=== PATIENT | female | born 1940 | race Caucasian/White ===

== ENCOUNTER 2018-09-15 16:00 | Outpatient (REF) | payer MEDICARE, BC, SELFPAY ==
[2018-09-15 22:10] LABS: HCT 37.8 % (36.0-46.0); HGB 12.8 g/dL (12.0-15.5); Mean Corp. HGB Concentration 33.9 g/dL (32.0-36.0); Mean Corpuscular Hemoglobin 30.2 pg (27.0-33.0); Mean Corpuscular Volume 89.2 fL (80-95); Mean Platelet Volume 9.6 fL (8.0-11.0); Platelet Count 264 x1000/uL (130-400); RBC 4.24 m/cumm (4.00-5.20); RBC Distribution Width 13.1 % (11.7-14.6); White Blood Cell Count 6.55 k/cumm (4.4-10.8)
[2018-09-15 22:26] LABS: ALT 29 U/L (12-78); Anion Gap 8.9 mmol/L (3-11); BUN 12 mg/dL (7-18); CO2 28.1 mmol/L (21.0-32.0); CREATININE 0.89 mg/dL (0.55-1.02); Calcium 8.9 mg/dL (8.5-10.1); Chloride 105 mmol/L (98-107); Cholesterol 196 mg/dL (50-200); Glucose 109 mg/dL (70-100); HDL Cholesterol 104 mg/dL (40-60); LDL CHOLESTEROL 75 mg/dL (<100); Potassium 4.3 mmol/L (3.5-5.1); Sodium 142 mmol/L (136-145); Triglyceride 131 mg/dL (30-150)
== END 2018-09-15 16:20 ==
LOC: NCHCN 16:00
PROVIDERS: PCP Family Medicine; Visit Provider Family Medicine
DX: R10.9 Unspecified abdominal pain (principal); R00.2 Palpitations; E78.89 Other lipoprotein metabolism disorders
CPT/HCPCS: 80048; 80061; 83721; 85027; 84460

== ENCOUNTER 2019-09-28 17:49 | Outpatient (REF) | payer MEDICARE, BC, SELFPAY ==
[2019-09-28 21:41] LABS: HCT 36.1 % (36.0-46.0); HGB 12.1 g/dL (12.0-15.5); Mean Corp. HGB Concentration 33.5 g/dL (32.0-36.0); Mean Corpuscular Hemoglobin 30.4 pg (27.0-33.0); Mean Corpuscular Volume 90.7 fL (80-95); Mean Platelet Volume 9.7 fL (8.0-11.0); Platelet Count 277 x1000/uL (130-400); RBC 3.98 m/cumm (4.00-5.20); RBC Distribution Width 12.4 % (11.7-14.6); White Blood Cell Count 8.62 k/cumm (4.4-10.8)
[2019-09-28 22:01] LABS: ALT 21 U/L (14-59); AST 27 U/L (15-37); Albumin 3.5 g/dL (3.4-5.0); Alkaline Phosphatase 82 U/L (46-116); Anion Gap 9.4 mmol/L (3-11); BUN 12 mg/dL (7-18); Bilirubin, Total 0.5 mg/dL (0.2-1.0); CO2 26.6 mmol/L (21.0-32.0); CREATININE 0.76 mg/dL (0.55-1.02); Calcium 8.6 mg/dL (8.5-10.1); Chloride 103 mmol/L (98-107); Glucose 104 mg/dL (74-106); Lipase 387 U/L (73-393); Potassium 4.2 mmol/L (3.5-5.1); Sodium 139 mmol/L (136-145); Total Protein 6.6 g/dL (6.4-8.2)
== END 2019-09-28 18:09 ==
LOC: NCHCN 17:49
PROVIDERS: PCP Family Medicine; Visit Provider Nurse Practitioner Family
DX: R10.9 Unspecified abdominal pain (principal)
CPT/HCPCS: 80053; 83690; 85027

== ENCOUNTER 2021-01-11 17:31 | Outpatient (REF) | payer MEDICARE, BC, SELFPAY ==
[2021-01-11 13:41] LABS: HCT 39.5 % (36.0-46.0); HGB 13.6 g/dL (11.2-15.7); MCH 30.8 pg (27.0-33.0); MCHC 34.4 % (32.0-36.0); MCV 89.6 fL (80-95); MPV 9.7 fL (8.0-11.0); Platelet Count 296 10^3/uL (130-400); RBC 4.41 10^6/uL (3.93-5.22); RDW 12.1 % (11.7-14.6); RDW-SD 39.8 fL; WBC 4.66 10^3/uL (4.4-10.8)
[2021-01-11 15:08] LABS: BUN 14 mg/dL (7-18); CREATININE 0.8 mg/dL (0.55-1.02); Chloride 106 mmol/L (98-107); Glucose 102 mg/dL (74-106); Potassium 4.5 mmol/L (3.5-5.1); Sodium 142 mmol/L (136-145)
== END 2021-01-11 17:32 | disposition home or self-care (01) ==
LOC: NCHCN 17:31
PROVIDERS: PCP Family Medicine; Visit Provider Family Medicine
DX: E87.6 Hypokalemia (principal); R53.83 Other fatigue
CPT/HCPCS: 80048; 85027

== ENCOUNTER 2021-10-11 15:03 | Outpatient (REF) | payer MEDICARE, BC, SELFPAY ==
[2021-10-11 21:59] LABS: Anion Gap 8.1 mmol/L (3-11); BUN 11 mg/dL (7-18); CO2 27.9 mmol/L (21.0-32.0); CREATININE 0.8 mg/dL (0.55-1.02); Calcium 8.8 mg/dL (8.5-10.1); Calculated LDL 91 mg/dL (<100); Chloride 105 mmol/L (98-107); Cholesterol 205 mg/dL (<200); Glucose 91 mg/dL (74-106); HDL Cholesterol 89 mg/dL (40-60); Sodium 141 mmol/L (136-145); Triglyceride 128 mg/dL (<150)
[2021-10-14 05:28] LABS: Vitamin D 25 Total 38.4 ng/mL (30-100)
== END 2021-10-11 15:04 | disposition home or self-care (01) ==
LOC: NCHCN 15:03
PROVIDERS: PCP Family Medicine; Visit Provider Family Medicine
DX: R29.898 Other symptoms and signs involving the musculoskeletal system (principal); Z13.21 Encounter for screening for nutritional disorder; Z13.220 Encounter for screening for lipoid disorders; Z86.39 Personal history of other endocrine, nutritional and metabolic disease; R53.83 Other fatigue; I10 Essential (primary) hypertension
CPT/HCPCS: 80048; 80061; 82306

== ENCOUNTER 2022-12-22 16:56 | Outpatient (REF) | payer MEDICARE, BC, SELFPAY ==
--- OUTSIDE RECORDS SUMMARY | 2022-12-22 17:14 | XMS_ITS | CCD ---
Author Name Unknown Address [address] [place] [address] [phone] Organization Unknown Address [address] [place] [address] [phone] Care Team Providers Care Christmas Tree Farm Manager Name Role Phone YUNIER MITCHELL Attending Physician [phone] Vital Signs Unknown or Not Available. Allergies Allergy Code Allergy Type Reaction Status PENICILLINS (CLASS) 78216 Drug allergy malaise, myalg ia Active AMOXICILLIN 723 Drug allergy fever, malaise Active Procedures Unknown or Not Available. History of Immunizations Unknown or Not Available. Problems Problem Code Start Date Resolved Date Status COVID-19 131820729 Active Stroke 566659702 12/31/2021 Resolved Results Unknown or Not Available. Active Medications Medication Code Dose Units Frequency Route Modificatio n Start Date/Time metroNIDAZOLE 500MG Oral Tablet 213167 1 TABLET EVERY 8 HOURS ORAL 12/31/2021 13:15 Prescription Detail TAKE 1 TABLET ORAL EVERY 8 HOURS Cipro 500MG Oral Tablet 322559 1 TABLET EVERY 12 HOURS ORAL 12/31/2021 13:14 Prescription Detail TAKE 1 TABLET ORAL EVERY 12 HOURS Aspirin 325MG Oral Tablet, Enteric Coated 638740 1 TABLET DAILY ORAL 09/17 12:23 Prescription Detail TAKE 1 TABLET ORAL DAILY Atorvastatin Calcium 10MG Oral Tablet 520113 10 MILLIGRAMS BEDTIME BY MOUTH 09/17/2015 12:22 Prescription Detail TAKE 10 MILLIGRAMS BY MOUTH BEDTIME Mapap 325MG Oral Tablet 127886 650 MILLIGRAMS NEEDED EVERY 4 HOURS BY MOUTH 09/17/2015 12:22 Prescription Detail TAKE 650 MILLIGRAMS BY MOUTH NEEDED E VERY 4 HOURS Medications Administered During Visit Unknown or Not Available. Encounters Encounter Diagnosis Diagnosis Code Start Date Diverticulitis of large inte soo without perforation or abscess without bleeding K5732 12/29/2021 Social History Unknown or Not Available. Patient Decision Aids Unknown or Not Available. Discharge Instructions You were admitted to [facility] on 12/29/2021 10:05 with a principal diagnosis of Diverticulitis of large intestine without perforation or abscess without bleeding You were discharged from [facility] on 12/29/2021 15:08 Should you have any questions prior to discharge, please contact a member of your healthcare team. If you have left the hospital and have any questions, please contact your primary care physician. Chief Complaint and Reason For Visit Unknown or Not Available. Function Status Unknown or Not Available. Plan of Care Unknown or Not Available. Referral/Transition of Care Unknown or Not Available.
--- OUTSIDE RECORDS SUMMARY | 2022-12-22 17:14 | XMS_ITS | CCD ---
Author Name Unknown Address [address] [place] [address] [phone] Organization Unknown Address [address] [place] [address] [phone] Care Team Providers Care Barman Name Role Phone KIKI WEBB Attending Physician [phone] KIKI WEBB Rounding (Secondary) Physici an [phone] Vital Signs Unknown or Not Available. Allergies Allergy Code Allergy Type Reaction Status PENICILLINS (CLASS) 40741 Drug allergy malaise, myalg ia Active AMOXICILLIN 723 Drug allergy fever, malaise Active Procedures Unknown or Not Available. History of Immunizations Unknown or Not Available. Problems Problem Code Start Date Resolved Date Status COVID-19 580565922 Active Results Unknown or Not Available. Active Medications Medication Code Dose Units Frequency Route Modificatio n Start Date/Time metroNIDAZOLE 500MG Oral Tablet 374623 1 TABLET EVERY 8 HOURS ORAL 12/31/2021 13:15 Prescription Detail TAKE 1 TABLET ORAL EVERY 8 HOURS Cipro 500MG Oral Tablet 919513 1 TABLET EVERY 12 HOURS ORAL 12/31/2021 13:14 Prescription Detail TAKE 1 TABLET ORAL EVERY 12 HOURS Aspirin 325MG Oral Tablet, Enteric Coated 991675 1 TABLET DAILY ORAL 09/17 12:23 Prescription Detail TAKE 1 TABLET ORAL DAILY Atorvastatin Calcium 10MG Oral Tablet 513968 10 MILLIGRAMS BEDTIME BY MOUTH 09/17/2015 12:22 Prescription Detail TAKE 10 MILLIGRAMS BY MOUTH BEDTIME Mapap 325MG Oral Tablet 857176 650 MILLIGRAMS NEEDED EVERY 4 HOURS BY MOUTH 09/17/2015 12:22 Prescription Detail TAKE 650 MILLIGRAMS BY MOUTH NEEDED E VERY 4 HOURS Medications Administered During Visit Unknown or Not Available. Encounters Encounter Diagnosis Diagnosis Code Start Date Diverticulitis of intestine, part unspecified, without perforation or abscess without bleeding K5792 01/21/2022 Social History Smoking Status Code Start Date End Date Never smoker [id number] Patient Decision Aids Unknown or Not Available. Discharge Instructions You were admitted to [facility] on 01/21/2022 10:30 with a principal diagnosis of Diverticulitis of intestine, part unspecified, without perforation or abscess without bleeding You were discharged from [facility] on 01/21/2022 00:00 Should you have any questions prior to [...]
--- OUTSIDE RECORDS SUMMARY | 2022-12-22 17:14 | XMS_ITS | CCD ---
Author Name Unknown Address [address] [place] [address] [id number] Organization Unknown Address [address] [place] [address] [phone] Care Team Providers Care Aluminum Sheet Cutter Name Role Phone KIKI WEBB Attending Physician [phone] Vital Signs Unknown or Not Available. Allergies Allergy Code Allergy Type Reaction Status PENICILLINS (CLASS) 17252 Drug allergy malaise, myalg ia Active AMOXICILLIN 723 Drug allergy fever, malaise Active Procedures Unknown or Not Available. History of Immunizations Unknown or Not Available. Problems Problem Code Start Date Resolved Date Status COVID-19 995728676 Active Stroke 158259255 12/31/2021 Resolved Results Unknown or Not Available. Active Medications Medication Code Dose Units Frequency Route Modificatio n Start Date/Time metroNIDAZOLE 500MG Oral Tablet 502437 1 TABLET EVERY 8 HOURS ORAL 12/31/2021 13:15 Prescription Detail TAKE 1 TABLET ORAL EVERY 8 HOURS Cipro 500MG Oral Tablet 886348 1 TABLET EVERY 12 HOURS ORAL 12/31/2021 13:14 Prescription Detail TAKE 1 TABLET ORAL EVERY 12 HOURS Aspirin 325MG Oral Tablet, Enteric Coated 358013 1 TABLET DAILY ORAL 09/17 12:23 Prescription Detail TAKE 1 TABLET ORAL DAILY Atorvastatin Calcium 10MG Oral Tablet 948567 10 MILLIGRAMS BEDTIME BY MOUTH 09/17/2015 12:22 Prescription Detail TAKE 10 MILLIGRAMS BY MOUTH BEDTIME Mapap 325MG Oral Tablet 888826 650 MILLIGRAMS NEEDED EVERY 4 HOURS BY MOUTH 09/17/2015 12:22 Prescription Detail TAKE 650 MILLIGRAMS BY MOUTH NEEDED E VERY 4 HOURS Medications Administered During Visit Unknown or Not Available. Encounters Encounter Diagnosis Diagnosis Code Start Date Diverticulitis of large inte soo without perforation or abscess without bleeding K5732 12/29/2021 Social History Smoking Status Code Start Date End Date Never smoker [id number] Patient Decision Aids Unknown or Not Available. Discharge Instructions You were admitted to [facility] on 12/29/2021 01:02 with a principal diagnosis of Diverticulitis of large intestine without perforation or abscess without bleeding You were discharged from [facility] on 12/31/2021 01:07 Should you have any questions prior to [...]
--- OUTSIDE RECORDS SUMMARY | 2022-12-22 17:14 | XMS_ITS | CCD ---
Author Name Unknown Address [address] [place] [address] [id number] Organization Unknown Address [address] [place] [address] [phone] Care Team Providers Care Pediatric Speech Therapist Name Role Phone BARB RUDOLPH Attending Physician [phone] NORBERTO GOTTI (Secondary) Physician [phone] Vital Signs Unknown or Not Available. Allergies Allergy Code Allergy Type Reaction Status PENICILLINS (CLASS) 04673 Drug allergy malaise, myalg ia Active AMOXICILLIN 723 Drug allergy fever, malaise Active Procedures Unknown or Not Available. History of Immunizations Unknown or Not Available. Problems Problem Code Start Date Resolved Date Status COVID-19 974629246 Active Results CATHY COVID RHEONIX* - Lili ect Date/Time: 04/14/2022 10:14 Test Name Code Test Result Test Units Test Ref Rang e Tier- 45925-7 PRE-OP N/A SARS COV2 RNA: 15020-2 NEGATIVE N/A REFERENCE RANGE: NEGAT Active Medications Medication Code Dose Units Frequency Route Modificatio n Start Date/Time metroNIDAZOLE 500MG Oral Tablet 522854 1 TABLET EVERY 8 HOURS ORAL 12/31/2021 13:15 Prescription Detail TAKE 1 TABLET ORAL EVERY 8 HOURS Cipro 500MG Oral Tablet 786004 1 TABLET EVERY 12 HOURS ORAL 12/31/2021 13:14 Prescription Detail TAKE 1 TABLET ORAL EVERY 12 HOURS Aspirin 325MG Oral Tablet, Enteric Coated 713438 1 TABLET DAILY ORAL 09/17 12:23 Prescription Detail TAKE 1 TABLET ORAL DAILY Atorvastatin Calcium 10MG Oral Tablet 188292 10 MILLIGRAMS BEDTIME BY MOUTH 09/17/2015 12:22 Prescription Detail TAKE 10 MILLIGRAMS BY MOUTH BEDTIME Mapap 325MG Oral Tablet 940204 650 MILLIGRAMS NEEDED EVERY 4 HOURS BY MOUTH 09/17/2015 12:22 Prescription Detail TAKE 650 MILLIGRAMS BY MOUTH NEEDED E VERY 4 HOURS Medications Administered During Visit Unknown or Not Available. Encounters Encounter Diagnosis Diagnosis Code Start Date Pre-surgery testing [id number] 04/14/2022 Social History Smoking Status Code Start Date End Date Never smoker 826537899 Patient Decision Aids Unknown or Not Available. Discharge Instructions You were admitted to [facility] on 04/14/2022 18:37 with a principal diagnosis of Encounter for preprocedural laboratory examination You had the following tests done:CATHYYADIRA LIVINGSTON RHEONIX* You were discharged from [facility] on 04/14/2022 18:37 Should you have any questions prior to [...]
--- OUTSIDE RECORDS SUMMARY | 2022-12-22 17:14 | XMS_ITS | CCD ---
Author Name Unknown Address [address] [place] [address] [id number] Organization Unknown Address [address] [place] [address] [phone] Care Team Providers Care Manager Nuclear Name Role Phone KIKI WEBB Attending Physician [phone] YUNIER MITCHELL Er Physician [phone] YUNIER MITCHELL Rounding (Secondary) Physician [phone] THOMAS Jacobsen Registered Nurse [phone] Unavailable Registered Nurse [phone] Vital Signs Vital Sign Value Unit Date/Time Recent/Initial ? BMI (Body Mass Index) 21.03 kg/m^2 12/29/2021 10: 26 Initial VS Weight Measured 115 lbs 12/29/2021 10:26 Ini tial VS Height 62 in 12/29/2021 10:26 Initial VS BSA (Body Surface Area) 1.51 m^2 12/29/2021 1 0:26 Initial VS BP Systolic 162 mmHg 12/29/2021 10:26 Initial VS BP Diastolic 68 mmHg 12/29/2021 10:26 Initia l VS Respiratory Rate 18 bpm 12/29/2021 10:26 In itial VS Heart Rate 70 bpm 12/29/2021 10:26 Initial VS O2 % BldC Oximetry 98 % 12/29/2021 10:26 Initial VS Body Temperature 37.2 degrees 12/29/2021 10:26 In itial VS BP Systolic 141 mmHg 12/31/2021 08:44 Most Re cent VS BP Diastolic 81 mmHg 12/31/2021 08:44 Most R ecent VS Respiratory Rate 18 bpm 12/31/2021 08:[address] Recent VS Heart Rate 77 bpm 12/31/2021 08:44 Most Rec ent VS O2 % BldC Oximetry 99 % 12/31/2021 08:44 Most Recent VS Body Temperature 36.6 degrees 12/31/2021 08:[address] Recent VS BMI (Body Mass Index) 20.85 kg/m^2 12/31/2021 09: 48 Most Recent VS Weight Measured 114 lbs 12/31/2021 09:48 Mos t Recent VS Height 62 in 12/31/2021 09:48 Most Rec ent VS BSA (Body Surface Area) 1.5 m^2 12/31/2021 0 9:48 Most Recent VS Allergies Allergy Code Allergy Type Reaction Status PENICILLINS (CLASS) 71165 Drug allergy malaise, myalg ia Active AMOXICILLIN 723 Drug allergy fever, malaise Active Procedures Unknown or Not Available. History of Immunizations Unknown or Not Available. Problems Problem Code Start Date Resolved Date Status COVID-19 824057144 Active Stroke 028142928 12/31/2021 Resolved Results BASIC METABOLIC PANEL (BMP) - Collect Date/Time: 12/31/2021 07:30 Test Name Code Test Result Test Units Test Ref Rang e GLUCOSE 2345-7 107 mg/dL L=70 H=116 BUN 3094-0 7 mg/dL L=6 H=25 CREATININE 2160-0 0.78 mg/dL L=0.51 H=0.95 SODIUM SERUM 2951-2 139 mmol/L L=136 H=145 POTASSIUM SERUM 2823-3 3.9 mmol/L L=3.4 H=5 .2 CHLORIDE SERUM 2075-0 105 mmol/L L=96 H=110 CARBON DIOXIDE (CO2) 2028-9 25 mmol/L L=22 H=34 ANION GAP 82475-9 9.1 mmol/L CALCIUM SERUM 22056-7 8.8 mg/dL L=8.2 H=10. 2 AGE 81 years eGFR (non-Afr.Amer.) 58287-1 71 mL/min eGFR (Afr-Salvadorean) 09767-8 85 mL/min BASIC METABOLIC PANEL (BMP) - Collect Date/Time: 12/30/2021 06:20 Test Name Code Test Result Test Units Test Ref Rang e GLUCOSE 2345-7 111 mg/dL L=70 H=116 BUN 3094-0 9 mg/dL L=6 H=25 CREATININE 2160-0 0.82 mg/dL L=0.51 H=0.95 SODIUM SERUM 2951-2 136 mmol/L L=136 H=145 POTASSIUM SERUM 2823-3 3.6 mmol/L L=3.4 H=5 .2 CHLORIDE SERUM 2075-0 102 mmol/L L=96 H=110 CARBON DIOXIDE (CO2) 2028-9 26 mmol/L L=22 H=34 ANION GAP 04420-4 8.5 mmol/L CALCIUM SERUM 14454-9 8.6 mg/dL L=8.2 H=10. 2 AGE 81 years eGFR (non-Afr.Amer.) 10960-3 67 mL/min eGFR (Afr-Salvadorean) 90354-5 81 mL/min COMPREHENSIVE METABOLIC PANE L (CMP) - Collect Date/Time: 12/29/2021 11:45 Test Name Code Test Result Test Units Test Ref Rang e GLUCOSE 2345-7 98 mg/dL L=70 H=116 BUN 3094-0 10 mg/dL L=6 H=25 CREATININE 2160-0 0.81 mg/dL L=0.51 H=0.95 SODIUM SERUM 2951-2 136 mmol/L L=136 H=145 POTASSIUM SERUM 2823-3 4.0 mmol/L L=3.4 H=5 .2 CHLORIDE SERUM 2075-0 101 mmol/L L=96 H=110 CARBON DIOXIDE (CO2) 2028-9 25 mmol/L L=22 H=34 ANION GAP 65157-4 10.3 mmol/L CALCIUM SERUM 60898-2 9.0 mg/dL L=8.2 H=10. 2 BILIRUBIN TOTAL 1975-2 0.5 mg/dL L=0.0 H=1 .3 ALK. PHOS. 6768-6 88 U/L L=46 H=116 SGOT (AST) 1920-8 23 U/L L=15 H=37 SGPT (ALT) 1742-6 20 U/L L=12 H=78 TOTAL PROTEIN 2885-2 7.5 gm/dL L=6.0 H=8.0 ALBUMIN 1751-7 3.2 gm/dL L=3.4 H=5.0 AGE 81 years eGFR (non-Afr.Amer.) 85216-8 68 mL/min eGFR (Afr-Salvadorean) 20562-5 82 mL/min LIPASE* - Collect Date/Time: 12/29/2021 11:45 Test Name Code Test Result Test Units Test Ref Rang e LIPASE 185 U/L L=73 H=393 CBC W/ DIFFERENTIAL* - Colle ct Date/Time: 12/31/2021 07:30 Test Name Code Test Result Test Units Test Ref Rang e WBC 6690-2 7.14 th/cmm L=5.00 H=10.00 NEUT % 63.7 % L=40.0 H=80.0 LYMPH % 22.4 % L=10.0 H=50.0 MONO % 04433-1 11.1 % L=2.0 H=12.0 EOS % 1.8 % L=0.0 H=8.0 BASO % 0.7 % L=0.0 H=3.0 IG % 2514-8 0.3 % L=0.0 H=1.1 NRBC % 53263-4 0.0 % L=0.0 H=0.0 NEUT abs count 751-8 4.6 th/cmm L=1.6 H=8. 4 LYMPH abs count 731-0 1.6 th/cmm L=1.5 H=4 .0 MONO abs count 742-7 0.8 th/cmm L=0.2 H=1. 0 EOS abs count 711-2 0.1 th/cmm L=0.0 H=0.5 BASO abs count 704-7 0.1 th/cmm L=0.0 H=0. 2 IG abs count 48227-7 0.0 th/cmm L=0.0 H=0.1 NRBC abs count 20352-6 0.0 mil/cmm L=0.0 H=0. 0 RBC 789-8 4.15 mil/cmm L=3.90 H=5.40 HEMOGLOBIN 718-7 12.5 gm/dL L=12.0 H=16.0 HEMATOCRIT 4544-3 36 % L=37 H=47 MCV 787-2 87 fL L=82 H=92 MCH 785-6 30.1 pg L=27.0 H=31.0 MCHC 786-4 34.6 % L=32.0 H=36.0 RDW-SD 788-0 38.1 fL L=39.0 H=49.0 PLATELET COUNT 777-3 344 th/cmm L=150 H=45 0 CBC W/ DIFFERENTIAL* - [facility] ct Date/Time: 12/30/2021 06:20 Test Name Code Test Result Test Units Test Ref Rang e WBC 6690-2 6.98 th/cmm L=5.00 H=10.00 NEUT % 71.1 % L=40.0 H=80.0 LYMPH % 16.9 % L=10.0 H=50.0 MONO % 63152-0 9.9 % L=2.0 H=12.0 EOS % 1.3 % L=0.0 H=8.0 BASO % 0.4 % L=0.0 H=3.0 IG % 2514-8 0.4 % L=0.0 H=1.1 NRBC % 58037-7 0.0 % L=0.0 H=0.0 NEUT abs count 751-8 5.0 th/cmm L=1.6 H=8. 4 LYMPH abs count 731-0 1.2 th/cmm L=1.5 H=4 .0 MONO abs count 742-7 0.7 th/cmm L=0.2 H=1. 0 EOS abs count 711-2 0.1 th/cmm L=0.0 H=0.5 BASO abs count 704-7 0.0 th/cmm L=0.0 H=0. 2 IG abs count 01421-7 0.0 th/cmm L=0.0 H=0.1 NRBC abs count 14552-5 0.0 mil/cmm L=0.0 H=0. 0 RBC 789-8 4.02 mil/cmm L=3.90 H=5.40 HEMOGLOBIN 718-7 12.1 gm/dL L=12.0 H=16.0 HEMATOCRIT 4544-3 35 % L=37 H=47 MCV 787-2 87 fL L=82 H=92 MCH 785-6 30.1 pg L=27.0 H=31.0 MCHC 786-4 34.5 % L=32.0 H=36.0 RDW-SD 788-0 38.5 fL L=39.0 H=49.0 PLATELET COUNT 777-3 297 th/cmm L=150 H=45 0 CBC W/ DIFFERENTIAL* - [facility] ct Date/Time: 12/29/2021 11:45 Test Name Code Test Result Test Units Test Ref Rang e WBC 6690-2 10.08 th/cmm L=5.00 H=10.00 NEUT % 72.3 % L=40.0 H=80.0 LYMPH % 15.5 % L=10.0 H=50.0 MONO % 76982-6 10.4 % L=2.0 H=12.0 EOS % 0.9 % L=0.0 H=8.0 BASO % 0.5 % L=0.0 H=3.0 IG % 2514-8 0.4 % L=0.0 H=1.1 NRBC % 96414-6 0.0 % L=0.0 H=0.0 NEUT abs count 751-8 7.3 th/cmm L=1.6 H=8. 4 LYMPH abs count 731-0 1.6 th/cmm L=1.5 H=4 .0 MONO abs count 742-7 1.1 th/cmm L=0.2 H=1. 0 EOS abs count 711-2 0.1 th/cmm L=0.0 H=0.5 BASO abs count 704-7 0.1 th/cmm L=0.0 H=0. 2 IG abs count 16283-9 0.0 th/cmm L=0.0 H=0.1 NRBC abs count 03744-0 0.0 mil/cmm L=0.0 H=0. 0 RBC 789-8 4.28 mil/cmm L=3.90 H=5.40 HEMOGLOBIN 718-7 13.0 gm/dL L=12.0 H=16.0 HEMATOCRIT 4544-3 38 % L=37 H=47 MCV 787-2 88 fL L=82 H=92 MCH 785-6 30.4 pg L=27.0 H=31.0 MCHC 786-4 34.7 % L=32.0 H=36.0 RDW-SD 788-0 38.5 fL L=39.0 H=49.0 PLATELET COUNT 777-3 309 th/cmm L=150 H=45 0 CATHY HARRINGTONONIX* - Lili ect Date/Time: 12/30/2021 05:00 Test Name Code Test Result Test Units Test Ref Jennifer kan Tier- 19700-8 INPATIENT/ED N/A SARS COV2 RNA: 48803-9 POSITIVE N/A REFERENCE RANGE: NEGAT URINALYSIS WITH REFLEX CULT IF POSITIVE* - Collect Date/Time: 12/29/2021 13:05 Test Name Code Test Result Test Units Test Ref Rang e COLLECTION MODE: 21175-0 CLEAN CATCH N/A Color 5778-6 STRAW N/A yellow Appearance 5767-9 CLEAR N/A clear Glucose urine 97523-2 NEGATIVE N/A negative mg /dl Bilirubin 5770-3 NEGATIVE N/A negative Ketones 2514-8 NEGATIVE N/A negative mg/dl Spec gravity 5811-5 <=1.005 N/A 1.003 - 1.03 0 pH urine 2756-5 7.0 N/A 5.0 - 7.0 Protein 94905-8 NEGATIVE N/A negative mg/dl Urobilinogen 15903-9 0.2 N/A <or= 1 EU/dl Nitrite. 5802-4 NEGATIVE N/A negative Blood 5794-3 NEGATIVE N/A negative Leukocytes. NEGATIVE N/A negative MICROSCOPIC NOT INDICAT N/A Active Medications Medications Administered During Visit Medication Dose Units Frequency Route Date/Time of Last Dose POTASSIUM CHL IN D5%-1/2NS: 20mEq/1000ML 1 EA CONT 12/30/2021 22:0 0 PANTOPRAZOLE INJ SDV: 40MG 40 MG DAILY IVP 12/31/2021 07:56 CefTRIAXone IVPB: 1GM/50ML 1 GM Q24H 12/31/2021 13:40 MetroNIDAZOLE IVPB PREMIX: 500MG/100ML 500 MG Q8H 12/30/2021 04:1 0 MetroNIDAZOLE IVPB PREMIX: 500MG/100ML 500 MG Q8H 12/31/2021 11:3 0 ATORVASTATIN TABLET: 10MG 10 MG BEDTIME PO 12/30/2021 22:00 ASPIRIN TABLET E.C.: 81MG 81 MG DAILY WITH AMLIK D PO 12/31/2021 07:56 Encounters Encounter Diagnosis Diagnosis Code Start Date Diverticulitis of large inte soo without perforation or abscess without bleeding K5732 12/29/2021 Social History Smoking Status Code Start Date End Date Never smoker [id number] Patient Decision Aids Patient Decision Aid Diverticulitis Discharge Instructions You were admitted to [facility] on 12/29/2021 15:10 with a principal diagnosis of Diverticulitis of large intestine without perforation or abscess without bleeding You had the following tests done:BASIC METABOLIC PANEL (BMP)CBC W/ DIFFERENTIAL*BASIC METABOLIC PANEL (BMP)CBC W/ DIFFERENTIAL*CATHY COVID RHEONIX*URINALYSIS WITH REFLEX CULT IF POSITIVE*CBC W/ DIFFERENTIAL*COMPREHENSIVE METABOLIC PANEL (CMP)LIPASE* You were discharged from [facility] on 12/31/2021 16:10 Should you have any questions prior to discharge, please contact a member of your healthcare team. If you have left the hospital and have any questions, please contact your primary care physician. Chief Complaint and Reason For Visit Chief Complaint Date of Onset DIVERTICULITIS 12/29/2021 Function Status Unknown or Not Available. Plan of Care Unknown or Not Available. Referral/Transition of Care Unknown or Not Available.
--- OUTSIDE RECORDS SUMMARY | 2022-12-22 17:14 | XMS_ITS | CCD ---
Author Name Unknown Address [address] [place] [address] [id number] Organization Unknown Address [address] [place] [address] [phone] Care Team Providers Care Technician Support Association Name Role Phone GEOFF ROBERSON Attending Physician [phone] GEOFF ROBERSON Rounding (Secondary) Physician [phone] Vital Signs Unknown or Not Available. Allergies Allergy Code Allergy Type Reaction Status PENICILLINS (CLASS) 98182 Drug allergy malaise, myalg ia Active AMOXICILLIN 723 Drug allergy fever, malaise Active Procedures Unknown or Not Available. History of Immunizations Unknown or Not Available. Problems Problem Code Start Date Resolved Date Status COVID-19 232568478 Active Results Unknown or Not Available. Active Medications Medication Code Dose Units Frequency Route Modificatio n Start Date/Time metroNIDAZOLE 500MG Oral Tablet 078849 1 TABLET EVERY 8 HOURS ORAL 12/31/2021 13:15 Prescription Detail TAKE 1 TABLET ORAL EVERY 8 HOURS Cipro 500MG Oral Tablet 928266 1 TABLET EVERY 12 HOURS ORAL 12/31/2021 13:14 Prescription Detail TAKE 1 TABLET ORAL EVERY 12 HOURS Aspirin 325MG Oral Tablet, Enteric Coated 494126 1 TABLET DAILY ORAL 09/17 12:23 Prescription Detail TAKE 1 TABLET ORAL DAILY Atorvastatin Calcium 10MG Oral Tablet 614130 10 MILLIGRAMS BEDTIME BY MOUTH 09/17/2015 12:22 Prescription Detail TAKE 10 MILLIGRAMS BY MOUTH BEDTIME Mapap 325MG Oral Tablet 369743 650 MILLIGRAMS NEEDED EVERY 4 HOURS BY MOUTH 09/17/2015 12:22 Prescription Detail TAKE 650 MILLIGRAMS BY MOUTH NEEDED E VERY 4 HOURS Medications Administered During Visit Unknown or Not Available. Encounters Unknown or Not Available. Social History Smoking Status Code Start Date End Date Never smoker [id number] Patient Decision Aids Unknown or Not Available. Discharge Instructions You were admitted to [facility] on 12/01/2022 15:41 You were discharged from [facility] on 12/01/2022 00:00 Should you have any questions prior [...]
--- OUTSIDE RECORDS SUMMARY | 2022-12-22 17:14 | XMS_ITS | CCD ---
Author Name Unknown Address [address] [place] [address] [phone] Organization Unknown Address [address] [place] [address] [phone] Care Team Providers Care Women'S Ministry Director Name Role Phone JAMES WILLAMS Attending Physician [phone] JAMES WILLAMS Rounding (Secondary) Physicia n [phone] Vital Signs Unknown or Not Available. Allergies Allergy Code Allergy Type Reaction Status PENICILLINS (CLASS) 96362 Drug allergy malaise, myalg ia Active AMOXICILLIN 723 Drug allergy fever, malaise Active Procedures Unknown or Not Available. History of Immunizations Unknown or Not Available. Problems Problem Code Start Date Resolved Date Status COVID-19 231501910 Active Results Unknown or Not Available. Active Medications Medication Code Dose Units Frequency Route Modificatio n Start Date/Time metroNIDAZOLE 500MG Oral Tablet 591173 1 TABLET EVERY 8 HOURS ORAL 12/31/2021 13:15 Prescription Detail TAKE 1 TABLET ORAL EVERY 8 HOURS Cipro 500MG Oral Tablet 043337 1 TABLET EVERY 12 HOURS ORAL 12/31/2021 13:14 Prescription Detail TAKE 1 TABLET ORAL EVERY 12 HOURS Aspirin 325MG Oral Tablet, Enteric Coated 960210 1 TABLET DAILY ORAL 09/17 12:23 Prescription Detail TAKE 1 TABLET ORAL DAILY Atorvastatin Calcium 10MG Oral Tablet 449413 10 MILLIGRAMS BEDTIME BY MOUTH 09/17/2015 12:22 Prescription Detail TAKE 10 MILLIGRAMS BY MOUTH BEDTIME Mapap 325MG Oral Tablet 554517 650 MILLIGRAMS NEEDED EVERY 4 HOURS BY MOUTH 09/17/2015 12:22 Prescription Detail TAKE 650 MILLIGRAMS BY MOUTH NEEDED E VERY 4 HOURS Medications Administered During Visit Unknown or Not Available. Encounters Encounter Diagnosis Diagnosis Code Start Date Mononeuropathy of lower limb 029615923 11/2022 Social History Smoking Status Code Start Date End Date Never smoker [id number] Patient Decision Aids Unknown or Not Available. Discharge Instructions You were admitted to [facility] on 12/08/2022 08:15 with a principal diagnosis of Other specified mononeuropathies of right lower limb You were discharged from [facility] on 12/08/2022 00:00 Should you have any questions prior [...]
[2022-12-22 22:21] LABS: Calculated LDL 68 mg/dL (<100); Cholesterol 181 mg/dL (<200); HDL Cholesterol 81 mg/dL (40-60); Triglyceride 162 mg/dL (<150)
== END 2022-12-22 16:57 | disposition home or self-care (01) ==
LOC: NCHCN 16:56
PROVIDERS: PCP Family Medicine; Visit Provider Nurse Practitioner Family
DX: E78.1 Pure hyperglyceridemia (principal)
CPT/HCPCS: 80061

== ENCOUNTER 2025-03-08 21:01 | Outpatient (REF) | payer MEDICARE, BC, SELFPAY ==
[2025-03-08 22:11] LABS: Anion Gap 9.0 mmol/L (3-11); BUN 14 mg/dL (7-18); CO2 25.0 mmol/L (21.0-32.0); Calcium 9.0 mg/dL (8.5-10.1); Calculated LDL 79 mg/dL (<100); Chloride 106 mmol/L (98-107); Cholesterol 186 mg/dL (<200); Estimated GFR 44.08 (mL/min/1.73m2); Glucose 154 mg/dL (74-106); HDL Cholesterol 87 mg/dL (>or=50); Potassium 3.9 mmol/L (3.5-5.1); Sodium 140 mmol/L (136-145); Triglyceride 103 mg/dL (<150)
== END 2025-03-08 21:02 | disposition home or self-care (01) ==
LOC: NCHCN 21:01
PROVIDERS: PCP Family Medicine; Visit Provider Family Medicine
DX: E78.5 Hyperlipidemia, unspecified (principal)
CPT/HCPCS: 80048; 80061

== ENCOUNTER 2025-04-07 19:15 | Outpatient (REF) | payer MEDICARE, BC, SELFPAY ==
[2025-04-07 18:39] LABS: COMMENT (LAB VIEW ONLY) 41.11 mg/dL; Microalb ug/mg Crea 84.2 ug/mg Cr
== END 2025-04-07 19:16 | disposition home or self-care (01) ==
LOC: NCHCN 19:15
PROVIDERS: Nurse Practitioner Family; PCP Family Medicine; Visit Provider Family Medicine
DX: R73.9 Hyperglycemia, unspecified (principal)
CPT/HCPCS: 82043; 82570